=== PATIENT | female | born 1995 | race African-American/Black ===

== ENCOUNTER 2017-03-14 08:22 | Emergency (ER) | payer MEDICAID ==
[~2017-03-14] VITALS: Ht 170.2 cm; Wt 75.7 kg
[2017-03-14 09:21] LABS: Urine Blood 3+ /uL (Negative)
[2017-03-14 09:22] LABS: Urine WBC 0-1 /hpf (0 - 5)
[2017-03-14 09:23] VITALS: BP 131/88
[2017-03-14 09:23] LABS: Urine Mucus moderate (None Seen)
== END 2017-03-14 10:25 | disposition home or self-care (01) ==
LOC: ER 08:22
DX: R31.9 Hematuria, unspecified (principal); F17.210 Nicotine dependence, cigarettes, uncomplicated
CPT/HCPCS: 81001